=== PATIENT | male | born 1940 | race Caucasian/White ===

== ENCOUNTER 2022-09-18 17:55 | Emergency (ER) | payer MEDICARE, BC ==
[~2022-09-18] VITALS: Ht 177.8 cm; Wt 72.6 kg
--- NOTE | 2022-09-18 18:34 | NUR ---
C/O BLADDER PRESSURE S/P ALLEN CATHETER REMOVAL YESTERDAY. PT SAID HAD TURP A WEEK AGO THEN REMOVED CATH AFTYER ADAY OF SURGERY THEN CATH WAS REINSERTED THEN REMOVED YESTERDAY. HE CLAIMS THAT HE HAS URGE TO PEE BUT 25-50ML OUTPUT. WAITING FOR DR SHARI VERAS
--- NOTE | 2022-09-18 18:50 | NUR ---
DR MCCARTHY AT BEDSIDE FOR EVAL.
--- NOTE | 2022-09-18 18:50 | NUR ---
BLADDER SCAn done -231ml dr gates made aware.
--- NOTE | 2022-09-18 19:02 | NUR ---
URINE COLLECTED ,SENT TO LAB.
--- NOTE | 2022-09-18 19:05 | NUR ---
CALLED LAB FOR LEAD CARGO MOVER OF SPECIMEN
[2022-09-18 19:20] LABS: BILIRUBIN,URINE NEGATIVE (NEGATIVE); COLOR,URINE YELLOW (YELLOW); LEUKOCYTE ESTERASE ,URINE TRACE (NEGATIVE); NITRITE, URINE NEGATIVE (NEGATIVE); PROTEIN,URINE NEGATIVE (NEGATIVE); UGLUCOSE NEGATIVE (NEGATIVE); UROBILINOGEN,URINE 0.2 EU/dL (0.2)
--- NOTE | 2022-09-18 19:23 | NUR ---
PT ENDORSE TO [facility] FOR KARI
[2022-09-18 19:33] LABS: BACTERIA,URINE None seen /HPF (None Seen); WBC,URINE 0-2 /HPF (0-3)
[2022-09-18 19:34] LABS: SQUAMOUS EPITHELIAL CELL,UR None Seen /HPF (None Seen)
--- NOTE | 2022-09-18 19:45 | NUR ---
Pt able to void freely. Patient discharged to home in stable condition. Written and verbal after care instructions given. Patient verbalizes understanding of instruction.
[2022-09-18 20:18] VITALS: BP 120/80
== END 2022-09-18 20:19 | disposition home or self-care (01) ==
LOC: ER 18:09
DX: R33.9 Retention of urine, unspecified (principal)
CPT/HCPCS: 81001